=== PATIENT | female | born 1960 | race Caucasian/White ===

== ENCOUNTER → 2019-07-02 | Outpatient (CLI) | payer BC ==
--- NOTE | 2019-07-02 11:59 | Diagnostic Imaging Report ---
EXAM: BONE MINERAL DENSITY HISTORY: Bone mineralization evaluation COMPARISON: None DISCUSSION: Evaluation of the left hip and lumbar spine was performed utilizing DEXA Hologic bone densitometer. The study is technically adequate. Left hip femoral neck bone mineral density: 0.81 g/cm2, T-score is -0.3, Z-score is 0.9. Left hip total bone mineral density: 0.88 g/cm2, T-score is -0.5, Z-score is 0.4. Lumbar spine total bone mineral density: 1.08 gm/cm2, T-score is 0.3, Z-score is 1.6. Impression: Bone mineralization by WHO Classification is normal, the fracture risk is not increased. Signed by: Dr. Rolf Phan M.D. on 07/02/2019 11:56 AM
== END ==
LOC: MAMMO 10:15
PROVIDERS: ATTEND Family Medicine
DX: Z12.31 Encounter for screening mammogram for malignant neoplasm of breast (principal); Z13.820 Encounter for screening for osteoporosis
CPT/HCPCS: 77067; 77080